=== PATIENT | female | born 1980 | race African-American/Black ===

== ENCOUNTER 2018-12-07 03:21 | Emergency (ER) | payer OTHER ==
[2018-12-07] MEDS: ONDANSETRON (ODT) 4 MG TAB ODT (04:00)
[2018-12-07] MEDS: ACETAMINOPHEN 500 MG TAB PO (04:01)
[2018-12-07 04:10] LABS: ADD MAN DIFF? NO
[2018-12-07 04:12] LABS: WHITE BLOOD COUNT 9.4 10^3/ul (4.8-10.8)
[2018-12-07 04:12] LABS: BASOPHIL # 0.1 10^3/ul (0.0-0.1); BASOPHILS % 0.5 % (0.0-2.0); EOSINOPHILS # 0.1 10^3/ul (0.0-0.5); EOSINOPHILS % 1.5 % (0.0-7.0); HEMATOCRIT 34.3 % (37.0-47.0); HEMOGLOBIN 11.3 g/dl (12.0-16.0); LYMPHOCYTES # 1.8 10^3/ul (0.8-2.9); LYMPHOCYTES % 19.4 % (15.0-51.0); MEAN CORPUSCULAR HGB CONC 32.9 g/dl (32.0-37.0); MEAN CORPUSCULAR VOLUME 88.2 fl (82.0-101.0); MONOCYTE # 0.6 10^3/ul (0.3-0.9); MONOCYTES % 6.6 % (0.0-11.0); NEUTROPHIL # 6.6 10^3/ul (1.6-7.5); NEUTROPHILS % 70.9 % (39.0-77.0); PLATELET COUNT 252 10^3/UL (140-415); RED BLOOD COUNT 3.89 10^6/ul (4.20-5.40); RED CELL DISTRIBUTION WIDTH 12.3 % (11.5-14.5)
[2018-12-07 04:18] LABS: ADD UMIC YES; UR ASCORBIC ACID NEGATIVE (NEGATIVE); UR BILIRUBIN (Dip) NEGATIVE (NEGATIVE); UR BLOOD (Dip) 2+ mg/dL (NEGATIVE); UR CLARITY SLIGHTLY CLOUDY (CLEAR); UR COLOR YELLOW (YELLOW); UR GLUCOSE (Dip) NEGATIVE (NEGATIVE); UR KETONES (Dip) NEGATIVE (NEGATIVE); UR LEUKOCYTE ESTERASE (Dip) TRACE Leu/ul (NEGATIVE); UR MUCUS FEW /HPF (NONE SEEN); UR NITRITE (Dip) NEGATIVE (NEGATIVE); UR RBC 11 /HPF (0-5); UR SQUAMOUS EPITHELIAL CELL FEW /HPF (FEW); UR TOTAL PROTEIN (Dip) NEGATIVE (NEGATIVE); UR UROBILINOGEN (Dip) NEGATIVE (NEGATIVE); UR WBC 3 /HPF (0-5)
[2018-12-07] MEDS: ACETAMINOPHEN 325 MG TAB PO (06:17)
== END 2018-12-07 06:20 | disposition home or self-care (01) ==
LOC: FTE 03:21
DX: O26.892 Other specified pregnancy related conditions, second trimester (principal); R51 Headache; Z3A.18 18 weeks gestation of pregnancy
CPT/HCPCS: 36415; 76805; 81001; 85025; 99284-25